=== PATIENT | male | born 1950 | race Caucasian/White ===

== ENCOUNTER 2018-01-25 17:30 | Emergency (ER) | payer MEDICARE, BC ==
[2018-01-25] MEDS: Sodium Phosphate,Monobasic/Sodium Phosphate,Dibasic Enema 133 ML Bottle RECTAL ONE (19:10)
--- NOTE | 2018-01-25 20:37 | EDM.PDOC ---
ED HPI GENERAL MEDICAL PROBLEM - General Chief Complaint: Abdominal Pain Stated Complaint: CONSTIPATION Time Seen by Provider: 01/25/18 17:45 Source of Information: Reports: Patient, Other (Assisted Living Nurse.) History Limitations: Reports: No Limitations - History of Present Illness Onset: Gradual Onset Date: 01/22/18 Onset Time: 08:00 Duration: Day(s): (3), Getting Worse Location: Reports: Abdomen Quality: Reports: Ache Severity: Mild Improves with: Reports: None Worsens with: Reports: None Context: Reports: Other (Constipated for last 3 days. Has not urinated all day also.) Associated Symptoms: Reports: No Other Symptoms Treatments CAR COOPER: Reports: Other (see below) Other Treatments CAR COOPER: metamucil at 1100 abdominal Pain Score (Numeric/FACES): 0 - Related Data Allergies Allergy/AdvReac Type Severity Reaction Status Date / Time bee pollen Allergy Cannot Verified 01/25/18 17:58 Remember Home Meds: Home Meds Aspirin [Tracey Chewable] 81 mg PO DAILY 01/25/18 [History] ED ROS GENERAL - Review of Systems Review Of Systems: See Below Constitutional: Reports: No Symptoms HEENT: Reports: No Symptoms Respiratory: Reports: No Symptoms Cardiovascular: Reports: No Symptoms Endocrine: Reports: No Symptoms GI/Abdominal: Reports: Constipation : Reports: Urinary Retention Musculoskeletal: Reports: No Symptoms Skin: Reports: No Symptoms Neurological: Reports: No Symptoms Psychiatric: Reports: No Symptoms Hematologic/Lymphatic: Reports: No Symptoms Immunologic: Reports: No Symptoms ED EXAM, GI/ABD - Physical Exam Exam: See Below Exam Limited By: No Limitations General Appearance: Alert, WD/WN, No Apparent Distress Eyes: Bilateral: Normal Appearance, EOMI Ears: Normal External Exam, Normal Canal, Hearing Grossly Normal, Normal TMs Nose: Normal Inspection, Normal Mucosa, No Blood Throat/Mouth: Normal Inspection, Normal Lips, Normal Teeth, Normal Gums, Normal Oropharynx, Normal Voice, No Airway Compromise Head: Atraumatic, Normocephalic Neck: Normal Inspection, Supple, Non-Tender, Full Range of Motion Respiratory/Chest: No Respiratory Distress, Lungs Clear, Normal Breath Sounds, No Accessory Muscle Use, Chest Non-Tender Cardiovascular: Normal Peripheral Pulses, Regular Rate, Rhythm, No Edema, No Gallop, No JVD, No Murmur, No Rub GI/Abdominal Exam: Distended, Abnormal Bowel Sounds (Decreased.) Back Exam: Normal Inspection, Full Range of Motion, NT Extremities: Normal Inspection, Normal Range of Motion, Non-Tender, Normal Capillary Refill, No Pedal Edema Neurological: Alert, Oriented, CN II-XII Intact, Normal Cognition, Normal Gait, Normal Reflexes, No Motor/Sensory Deficits Psychiatric: Normal Affect, Normal Mood Skin Exam: Warm, Dry, Intact, Normal Color, No Rash Lymphatic: No Adenopathy EKG INTERPRETATION Rhythm: NSR [place]: Normal P-Wave: Present QRS: Normal ST-T: Normal QT: Normal Comparison: NA - No Prior EKG Course - Vital Signs Text/Narrative:: Patient had a good ED course. His CT abdomen and all of his labs were normal. He was given a fleets enema and had a large bowel movement that relieved all of his symptoms and which relieved his urinary retention. He felt normal with no more abdominal distention or discomfort. He will push more fluids, will take stool softeners and will see his PCP if any other problems arise. Last Recorded V/S: Last Vital Signs Temp 36.9 C 01/25/18 17:38 Pulse 72 01/25/18 17:38 Resp 20 01/25/18 17:38 BP 157/105 H 01/25/18 17:38 Pulse Ox 100 01/25/18 17:38 - Orders/Labs/Meds Orders: Active Orders 24 hr Category Date Time Status EKG Documentation Completion [RC] ASDIRECTED Care 01/25/18 18:36 Active EKG Documentation Completion [RC] STAT Care 01/25/18 18:36 Active Abdomen wo Cont [CT] Stat Exams 01/25/18 17:49 Taken UA W/MICROSCOPIC [URIN] Stat Lab 01/25/18 20:15 Ordered Labs: Laboratory Tests 01/25/18 01/25/18 01/25/18 Range/Units 18:00 18:00 18:00 WBC 10.4 (4.0-11.0) K/uL RBC 5.27 (4.50-6.50) M/uL Hgb 16.1 (13.0-18.0) g/dL Hct 46.4 (40.0-54.0) % MCV 88 (76-96) fL MCH 30.6 (27.0-32.0) pg MCHC 34.7 (31.0-35.0) g/dL RDW 12.8 (11.0-16.0) % Plt Count 244 (150-400) K/uL MPV 9.8 (6.0-10.0) fL Neut % (Auto) 68.7 (45.0-70.0) % Lymph % (Auto) 15.5 L (20.0-40.0) % [place] % (Auto) 11.1 H (3.0-10.0) % Eos % (Auto) 4.1 (1.0-5.0) % Baso % (Auto) 0.6 H (0.0-0.5) % Neut # (Auto) 7.14 (2.00-7.50) K/uL Lymph # (Auto) 1.61 (1.50-4.00) K/uL [place] # (Auto) 1.15 H (0.20-0.80) K/uL Eos # (Auto) 0.43 H (0.04-0.40) K/uL Baso # (Auto) 0.06 (0.02-0.10) K/uL Sodium 137 (136-145) mmol/L Potassium 4.2 (3.5-5.1) mmol/L Chloride 104 (98-107) mmol/L Carbon Dioxide 26.5 (21.0-32.0) mmol/L Anion Gap 10.7 (5.0-15.0) mmol/L BUN 17 (8-26) mg/dL Creatinine 1.19 (0.70-1.30) mg/dL Est Cr Clr Drug Dosing 58.28 mL/min Estimated GFR (MDRD) > 60 (>60) MLS/MIN BUN/Creatinine Ratio 14.3 (6-25) Glucose 97 (74-100) mg/dL Calcium 8.8 (8.5-10.1) mg/dL Total Bilirubin 0.7 (0.0-1.0) mg/dL AST 24 (15-37) U/L ALT 30 (12-78) U/L Alkaline Phosphatase 61 (46-116) U/L Troponin I < 0.017 (0.000-0.060) ng/mL Total Protein 7.8 (6.4-8.2) g/dL Albumin 3.9 (3.4-5.0) g/dL Globulin 3.9 (2.2-4.2) g/dL Albumin/Globulin Ratio 1.0 (0.8-2.0) Urine Color Urine Appearance (CLEAR) Urine pH (5.0-8.0) Ur Specific [place] (1.003-1.030) Urine Protein (NEGATIVE) mg/dL Urine Glucose (UA) (NEGATIVE) mg/dL Urine Ketones (NEGATIVE) mg/dL Urine Occult Blood (NEGATIVE) Urine Nitrite (NEGATIVE) Urine Bilirubin (NEGATIVE) Urine Urobilinogen (0.2-1.0) E.U./dL Ur Leukocyte Esterase (NEGATIVE) Urine RBC /HPF Urine WBC /HPF Ur Squamous Epith Cells /HPF Urine Bacteria /HPF 01/25/18 Range/Units 20:15 WBC (4.0-11.0) K/uL RBC (4.50-6.50) M/uL Hgb (13.0-18.0) g/dL Hct (40.0-54.0) % MCV (76-96) fL MCH (27.0-32.0) pg MCHC (31.0-35.0) g/dL RDW (11.0-16.0) % Plt Count (150-400) K/uL MPV (6.0-10.0) fL Neut % (Auto) (45.0-70.0) % Lymph % (Auto) (20.0-40.0) % [place] % (Auto) (3.0-10.0) % Eos % (Auto) (1.0-5.0) % Baso % (Auto) (0.0-0.5) % Neut # (Auto) (2.00-7.50) K/uL Lymph # (Auto) (1.50-4.00) K/uL [place] # (Auto) (0.20-0.80) K/uL Eos # (Auto) (0.04-0.40) K/uL Baso # (Auto) (0.02-0.10) K/uL Sodium (136-145) mmol/L Potassium (3.5-5.1) mmol/L Chloride (98-107) mmol/L Carbon Dioxide (21.0-32.0) mmol/L Anion Gap (5.0-15.0) mmol/L BUN (8-26) mg/dL Creatinine (0.70-1.30) mg/dL Est Cr Clr Drug Dosing mL/min Estimated GFR (MDRD) (>60) MLS/MIN BUN/Creatinine Ratio (6-25) Glucose (74-100) mg/dL Calcium (8.5-10.1) mg/dL Total Bilirubin (0.0-1.0) mg/dL AST (15-37) U/L ALT (12-78) U/L Alkaline Phosphatase (46-116) U/L Troponin I (0.000-0.060) ng/mL Total Protein (6.4-8.2) g/dL Albumin (3.4-5.0) g/dL Globulin (2.2-4.2) g/dL Albumin/Globulin Ratio (0.8-2.0) Urine Color Yellow Urine Appearance Clear (CLEAR) Urine pH 6.0 (5.0-8.0) Ur Specific [place] 1.015 (1.003-1.030) Urine Protein Negative (NEGATIVE) mg/dL Urine Glucose (UA) Negative (NEGATIVE) mg/dL Urine Ketones Negative (NEGATIVE) mg/dL Urine Occult Blood Negative (NEGATIVE) Urine Nitrite Negative (NEGATIVE) Urine Bilirubin Negative (NEGATIVE) Urine Urobilinogen 0.2 (0.2-1.0) E.U./dL Ur Leukocyte Esterase Trace H (NEGATIVE) Urine RBC Not seen /HPF Urine WBC 0-5 H /HPF Ur Squamous Epith Cells Rare /HPF Urine Bacteria Not seen /HPF Meds: Medications Discontinued Medications Generic Name Dose Route Start Last Admin Trade Name Freq PRN Reason Stop Dose Admin Sodium Biphosphate/Sodium Phosphate 133 ml 01/25/18 19:27 01/25/18 19:10 Fleet Enema RECTAL 01/25/18 19:28 133 ml ONETIME ONE Administration Departure - Departure Time of Disposition: 20:39 Disposition: Home, Self-Care 01 Condition: Good Clinical Impression: Constipation in male - Discharge Information Referrals: PCP,None [Primary Care Provider] - - My Orders Last 24 Hours: My Active Orders 01/25/18 17:49 Abdomen wo Cont [CT] Stat 01/25/18 18:36 EKG Documentation Completion [RC] ASDIRECTED EKG Documentation Completion [RC] STAT 01/25/18 20:15 UA W/MICROSCOPIC [URIN] Stat - Assessment/Plan Last 24 Hours: My Active Orders 01/25/18 17:49 Abdomen wo Cont [CT] Stat 01/25/18 18:36 EKG Documentation Completion [RC] ASDIRECTED EKG Documentation Completion [RC] STAT 01/25/18 20:15 UA W/MICROSCOPIC [URIN] Stat
--- NOTE | 2018-01-26 08:30 | CT ---
DATE OF SERVICE: 01/25/18 CLINICAL DATA: Abdominal distention with constipation. UNENHANCED ABDOMEN CT: Multislice acquisition through the abdomen without IV or oral contrast was performed. No priors. There are minimal atelectatic changes in the dependent portion of both lower lungs. The lung bases are otherwise clear. There is a small hiatal hernia. There is mild mural thickening within the distal esophagus. Esophagitis should be considered. The unenhanced liver appears normal. The gallbladder appears normal. The spleen appears normal. The pancreas appears normal. The right and left adrenals appear normal. The right and left kidneys appear normal. No nephrocalcinosis or nephrolithiasis. No hydronephrosis or hydroureter. The fractionally visualized bladder appears normal. No free air. No free fluid. No dilated loops of bowel. No adenopathy. No aortic aneurysm. There is an umbilical hernia containing fat. [id number] [facility]
== END 2018-01-25 20:31 | disposition home or self-care (01) ==
LOC: LB.ED 17:30
DX: K59.00 Constipation, unspecified (principal); Z91.030 Bee allergy status
CPT/HCPCS: 36415; 74150; 80053; 81001; 84484; 85025; 93005; 99284; A9270